=== PATIENT | male | born 1970 | race Caucasian/White ===

== ENCOUNTER 2018-07-28 20:54 | Emergency (ER) | payer BC, MEDICAID ==
[~2018-07-28] VITALS: Ht 193 cm; Wt 156.5 kg
[2018-07-28 21:20] VITALS: BP 146/93
[2018-07-28] MEDS ORDERED: IBUPROFEN 600 MG TAB PO ONE (22:45)
[2018-07-28] MEDS ORDERED: HYDROcodone-ACET 10/325MG TAB PO ONE (22:45)
== END 2018-07-29 00:20 | disposition home or self-care (01) ==
LOC: ER 20:54
DX: S50.11XA Contusion of right forearm, initial encounter (principal); Z88.0 Allergy status to penicillin; W01.0XXA Fall on same level from slipping, tripping and stumbling without subsequent striking against object, initial encounter; Y93.89 Activity, other specified; Y99.8 Other external cause status; Y92.89 Other specified places as the place of occurrence of the external cause
CPT/HCPCS: 73090; 73200